=== PATIENT | male | born 1965 | race Caucasian/White ===

== ENCOUNTER → 2020-08-13 09:36 | Outpatient (BNVA) | payer MEDICARE, MEDICAID, SELFPAY | PROVIDERS: PCP Internal Medicine; Referring Provider Internal Medicine; Visit Provider Nurse Practitioner Gerontology | DX: E11.65 Type 2 diabetes mellitus with hyperglycemia (principal); I12.0 Hypertensive chronic kidney disease with stage 5 chronic kidney disease or end stage renal disease; N18.6 End stage renal disease; E11.22 Type 2 diabetes mellitus with diabetic chronic kidney disease; E11.42 Type 2 diabetes mellitus with diabetic polyneuropathy; Z79.4 Long term (current) use of insulin; E78.5 Hyperlipidemia, unspecified; Z99.2 Dependence on renal dialysis | CPT/HCPCS: Q3014 ==

== ENCOUNTER → 2020-09-17 09:03 | Outpatient (BNVA) | payer MEDICARE, MEDICAID, SELFPAY | PROVIDERS: PCP Internal Medicine; Referring Provider Internal Medicine; Visit Provider Nurse Practitioner Gerontology | DX: Z13.89 Encounter for screening for other disorder (principal) | CPT/HCPCS: Q3014 ==

== ENCOUNTER 2020-11-13 07:31 | Outpatient (REF) | payer MEDICARE, MEDICAID, SELFPAY ==
--- NOTE | ~2020-11-13 | US_ITS ---
EXAMINATION: US ABDOMEN COMPLETE CLINICAL INFORMATION: Diabetes mellitus, hypertension, end-stage renal disease. COMPARISON: None TECHNIQUE: Real-time imaging of the abdominal viscera. FINDINGS: PANCREAS: Visualized portions unremarkable. ABDOMINAL AORTA: The proximal, mid, and distal segments are normal in caliber. INFERIOR VENA CAVA: Visualized portions are normal. LIVER: Diffuse increased echotexture without focal abnormality. GALLBLADDER: Incompletely distended. A mural based echogenic focus is seen along the mid deep wall measuring 0.3 cm. Color Doppler showed no abnormal vascular flow. No mural thickening or pericholecystic fluid. COMMON BILE DUCT: Normal in caliber measuring 0.7 cm in diameter. RIGHT KIDNEY: 13.9 cm. An anechoic cyst in the upper pole measures 1.4 cm. An interpolar anechoic cyst measures 1.8 cm. A homogeneous interpolar echogenic focus measures 0.7 cm. Color Doppler showed no abnormal vascular flow. An upper pole echogenic focus measures 0.3 cm. No hydronephrosis. LEFT KIDNEY: Not visualized. No abnormality in the left renal fossa. SPLEEN: Normal. The spleen measures 14.4 cm in maximum dimension. FREE FLUID: None. US/US abdomen complete IMPRESSION: 1. Hepatic steatosis. 2. 0.3 cm gallbladder polyp without other significant abnormality. 3. Small right renal cysts demonstrate benign features. 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 0.3 cm nonobstructing right intrarenal calculus. 4. Nonvisualization of the left kidney which could be atrophic or surgically absent. Correlate with patient history. 5. Borderline splenic enlargement.
== END 2020-11-13 07:32 | disposition home or self-care (01) ==
LOC: HO.US 07:31
PROVIDERS: PCP Internal Medicine; Visit Provider Internal Medicine
DX: I12.0 Hypertensive chronic kidney disease with stage 5 chronic kidney disease or end stage renal disease (principal); E11.22 Type 2 diabetes mellitus with diabetic chronic kidney disease; N18.6 End stage renal disease
CPT/HCPCS: 76700

== ENCOUNTER → 2020-11-24 09:58 | Outpatient (BNVA) | payer MEDICARE, MEDICAID, SELFPAY | PROVIDERS: Visit Provider Dietitian, Registered ==

== ENCOUNTER 2020-12-05 15:10 | Emergency (ER) | payer MEDICARE, MEDICAID, SELFPAY ==
--- NOTE | ~2020-12-05 | XR_ITS ---
EXAMINATION: XR CHEST CLINICAL INFORMATION: Cardiac problems COMPARISON: None TECHNIQUE: 2 views of the chest were obtained. FINDINGS: Borderline enlarged cardiac silhouette. Pulmonary vascularity unremarkable. Lungs clear. Bone and soft tissues unremarkable XR/XR chest 2V IMPRESSION: Borderline enlarged cardiac silhouette
--- NOTE | 2020-12-05 14:00 | CA_ITS ---
Transthoracic Echocardiogram Patient (Last, First, Middle): David Gilbert, Gender: Male Date of : 1965 Age: 55 Procedure Date: 12/05/2020 Procedure Type: Transthoracic Echocardiogram Location: OP Height: 162.56 cm Weight: 86.18 kg BSA: 1.91 m2 Heart Rate: bpm BP: 208 / 94 mmHg Husbandry Person: ALFREDA Referring MD: Arsen Enriquez MD Pitch Worker: Andrei Muñoz MD Symptoms: I10 HTN E11.9 TYPE 2 DM, N18.6 END STAGE RENAL DISEASE Study Quality: Fair ECG Rhythm: Sinus Conclusions: - 1. Khvs-ni-acjuhxhr LV systolic dysfunction with LVEF of 40-45% with impaired relaxation filling pattern 2. Mild fibrocalcific aortic valve changes noted and mild mitral regurgitation 3. Moderate circumferential pericardial effusion with respiratory variation at both mitral and tricuspid inflow and dilated IVC, could suggest tamponade physiology 4. Moderately elevated right ventricular systolic pressure Findings Left Ventricle Normal left ventricular cavity size. There is mildly increased left ventricular wall thickness. The left ventricular systolic function is mild to moderately decreased. The visually estimated ejection fraction is between 40-45%. Spectral Doppler is indicative of an impaired relaxation filling pattern. E/E prime ratio is between 8 and 15 consistent with indeterminate filling pressures. Right Ventricle Normal right ventricular cavity size and systolic function. Atria The left atrium is likely dilated. There is no evidence of interatrial shunt. The right atrium is normal in size. Aortic Valve There is mild calcification of the aortic valve. There is mild thickening of the aortic valve. There is no aortic valve stenosis. There is no aortic valve regurgitation. Mitral Valve There is mild anterior and posterior mitral leaflet thickening. There is mild mitral annular calcification. There is mild mitral valve regurgitation. There is no mitral valve stenosis. Pulmonic Valve The pulmonic valve was not well visualized. Tricuspid Valve Likely normal tricuspid valve structure and function. There is mild to moderate tricuspid valve regurgitation. Moderate pulmonary hypertension is present. Great Vessels All visible segments of the aorta are normal in size. The pulmonary artery was not well visualized. Venous The inferior vena cava is mildly dilated and collapses less than 50% with inspiration. Pericardium/Pleural There is a moderate pericardial effusion. The inferior vena cava is dilated with reduced respiratory variability. There is excessive respiratory variation of the mitral valve and tricuspid valve Doppler velocities. Prior Study Comparison No prior study available for comparison. patient was referred to the emergency room due to findings of pericardial effusion as well as hypertension Measurements M-Mode Liner Measurements Normals - Women/Men AOV Cusps: 2.50 1.5-2.6 cm/m2 2D Linear Measurements IVSd: 1.47 0.6-0.9/0.6-1.0 cm LVIDd: 5.22 3.9-5.3/4.2-5.9 cm LVIDd Index: 2.73 2.4-3.2/2.2-3.1 cm/m2 LVIDs: 3.91 2.0-3.6 cm LVPWd: 1.23 0.7-1.1 cm Ao Root: 3.00 2.1-3.5 cm LA Diam: 4.30 2.7-3.8/3.0-4.0 cm LAIDs Index: 2.25 1.5-2.3 cm/m2 LV Mass: 368.74 67-162/88-224 g LV Mass Index: 193.06 43-95/49-115 g/m2 LVOT Diam: 2.20 3.0+(-)1.3 cm 2D Systolic Function EF 4C: 21.30 >55% EF 2C: 23.00 >55% Mitral Valve MV Pk E: 1.19 MV PK A: 1.11 MV Decel Time: 119.00 E/A: 1.10 E'Lateral: 7.29 E'Medial: 6.64 E/E' Med: 17.90 E/E' Lat: 16.30 PHT: 35.00 MVA PHT: 6.29 Decel Gratiot: 10.02 Aortic Valve AoV Pk Soto: 1.64 AoV Pk Grad: 11.00 LVOT LVOT Pk Soto: 0.85 LVOT Mn Soto: 0.68 LVOT VTI: 0.19 LVOT Pk Grad: 3.00 LVOT Mn Grad: 2.00 LVOT Diam: 2.20 LVOT Area: 3.80 Diastolic Function MV Pk E: 1.19 MV Pk A: 1.11 E/A: 1.10 E'Medial: 6.64 E/E' Med: 17.90 E' Laterial: 7.29 E/E' Lat: 16.30 Tricuspid Valve TR Pk Soto: 3.20 TR Pk Grad: 41.00 RA Press: 8.00 RVSP: 49.00 Great Vessels Aorta Ao Root-2D: 3.00 2.0-3.7 cm Ao Asc: 3.30 2.1-3.4 cm Ao Arch: 2.80 Pulmonary Valve PV Pk Soto: 1.09 Peak PV Grad: 5.00 Updated in Other Vendor System with Status of Final Andrei Muñoz MD electronically signed on 12/05/2020 5:02:54 PM with status of Final
--- NOTE | 2020-12-05 15:19 | ECG_ITS ---
Test Reason : CARDIAC FAILURE Blood Pressure : / mmHG Vent. Rate : 085 BPM Atrial Rate : 085 BPM P-R Int : 140 ms QRS Dur : 088 ms QT Int : 358 ms P-R-T Axes : 046 -03 049 degrees QTc Int : 426 ms Normal sinus rhythm Nonspecific T wave abnormality Abnormal ECG No previous ECGs available Referred By: Ritu Zhu Electronically Signed By:Serafin Manning
[2020-12-05 15:23] VITALS: BP 203/89; PULSE 85; RESP 16; TEMP 36.7; O2SAT 97; BMI 32.5
--- NOTE | 2020-12-05 15:32 | ED.RECABL ---
HPI - Recheck/Abnormal Lab/Rx General Chief Complaint: General Medical Stated Complaint: cardiac failure Time Seen by Provider: 12/05/20 15:17 Source: patient Mode of arrival: ambulatory Limitations: language barrier (Bots[place]an-speaking) History of Present Illness HPI narrative: 55-year-old male who is [place]an-speaking with at Bedside with a past medical history of end-stage renal disease on hemodialysis on Tuesday//Tuesday last had hemodialysis on which was yesterday, type 2 diabetes, hypertension and hyperlipidemia presenting to the ED by Dr. 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 Dang with associated pulmonary hypertension, an EF of 40-45% with a small to moderate pericardial effusion and elevated blood pressure 200/89. Although patient denies any complaints or concerns at this time. He reports he feels like his normal self and he is unsure why exactly he is here. Requesting to go home. - I consulted with Dr. Muñoz and he reported that he sent the patient in due to the hypertension and pericardial effusion on echo and he was unsure when his last hemodialysis was although he does not know much more from the patient due to that is not his patient he does not know who the middle school pe teacher is. The patient reports that his primary care provider Dr. Dang ordered the outpatient echocardiogram. Related Data Home Medications Medication Instructions Recorded Confirmed atorvastatin 10 mg tablet 10 mg PO DAILY 08/13/20 12/05/20 blood sugar diagnostic #10 ea 08/13/20 09/17/20 furosemide 40 mg tablet 40 mg PO DAILY 08/13/20 12/05/20 isosorbide mononitrate 30 mg 30 mg PO DAILY 08/13/20 12/05/20 tablet,extended release 24 hr lancets 28 gauge #100 ea 08/13/20 09/17/20 metoprolol succinate 100 mg 100 mg PO DAILY 08/13/20 12/05/20 tablet,extended release 24 hr pantoprazole 40 mg tablet,delayed 40 mg PO DAILY 08/13/20 12/05/20 release pentoxifylline 400 mg 400 mg PO BID 08/13/20 12/05/20 tablet,extended release risperidone 1 mg tablet 1 mg PO BEDTIME 08/13/20 12/05/20 temazepam 15 mg capsule 15 mg PO DAILY 08/13/20 12/05/20 fluoxetine 20 mg capsule 20 mg PO DAILY cap 09/17/20 12/05/20 hydralazine 10 mg tablet 10 mg PO TID 09/17/20 12/05/20 insulin degludec 25 unit SUBCUT DAILY 12/05/20 12/05/20 Previous Rx's Medication Instructions Recorded blood sugar diagnostic #150 ea 09/17/20 insulin aspart U-100 100 unit/mL 20 - 24 unit SUBCUT TID 90 Days 09/29/20 (3 mL) subcutaneous pen #75 ml Allergies Allergy/AdvReac Type Severity Reaction Status Date / Time No Known Allergies Allergy Unverified 09/17/20 15:12 [No Known Allergies*] Review of Systems Review of Systems: Constitutional : No Weight loss, No Fever, No Chills, No Night Sweats, No Fatigue, No Malaise, no recent travel, no sick contacts ENT/Mouth : No Hearing loss, No Ear Pain, No Nasal Congestion, No Sinus Pain, No Hoarseness, No sore throat, No Rhinorrhea, No Swallowing Difficulty Eyes: No Eye Pain, No Swelling, No Redness, No Foreign Body, No Discharge, No Vision Changes Cardiovascular : No SOB, no Dyspnea on Exertion, No Orthopnea, No Edema, No extremity swelling, No Palpitations Respiratory : No Cough, No Sputum, No Wheezing, No Dyspnea Gastrointestinal : No Nausea, No Vomiting, No Diarrhea, No abdominal Pain, No Hematochezia, No Melena Genitourinary : No irregular bleeding, No Dysuria, No Urinary Frequency, No Hematuria, No Urinary Incontinence, No Urgency, No Flank Pain, No Urinary Flow Changes, No Hesitancy Musculoskeletal : No joint pain, No Myalgias, No Joint Swelling Skin : No Skin Lesions, No rash Neuro : No Weakness, No Numbness, No Paresthesias, No Loss of Consciousness, No Dizziness, No Headache Psych : No Anxiety/Panic, No Depression, No SI/HI/AH/VH Heme/Lymph: No Bruising, No Bleeding,No Lymphadenopathy Endocrine : No Polyuria, No Polydipsia, No Temperature Intolerance Yes all other systems are reviewed and are negative FOR[facility]LY [facility] Past Medical History Attestation statement: The following information was validated with the patient. Medical History Dependence on renal dialysis End stage renal disease Essential hypertension Hyperlipidemia LDL goal <70 Hypertriglyceridemia Type 2 diabetes mellitus with chronic kidney disease Type 2 diabetes mellitus with diabetic polyneuropathy Type 2 diabetes mellitus with hyperglycemia, with long-term current use of insulin Surgical History History of right cataract surgery Hx of eye surgery Family History Family History Father Diabetes Mother Diabetes Social History Social History Household Members: Family Alcohol intake: never Smoking Status: Never smoker Use of substances other than those prescribed or required for medical reasons: No Physical Exam Vital Signs: Vital Signs: Last Vital Signs Temp 98.1 F 12/05/20 15:23 Pulse 85 12/05/20 15:23 Resp 16 12/05/20 15:23 BP 203/89 H 12/05/20 15:23 Pulse Ox 97 12/05/20 15:23 Body Mass Index 32.5 vital signs have been reviewed as normal and appeared to be correct. Blood pressure hypertensive at 203/89. Heart rate normal. Respiration rate normal. Temperature normal. Oxygen saturation normal. Appearance: Alert. Oriented X3. No acute distress. Head: Normal external exam. Normocephalic. Atraumatic. Eyes: PERRLA. EOMI. Conjunctiva and sclera normal. Eyelids normal. ENT:Pharynx normal. Uvula midline. Moist mucous membranes. No trismus noted. No drooling noted. No muffled voice noted. Neck: Normal inspection. Neck supple. FROM. No adenopathy. Thyroid Normal. No meningeal signs. No neck mass noted. CVS: Normal heart rate and rhythm. Heart sound normal. No murmurs noted. Pulses normal throughout. Respiratory: No respiratory distress. Painless inspiration. Breath sounds normal. No wheezes/rales/rhonchi noted. Chest nontender. No accessory muscle usage noted or decreased air movement noted. Abdomen: Soft and nontender. Bowel sounds normal in all 4 quadrants. No distention noted. No organomegaly noted. No visible injury noted. Back: No CVA tenderness. Full range of motion noted. Skin: Skin warm and dry. Normal skin color. Normal skin turgor. No rashes/lesions/lacerations noted. Extremities: No lower extremity edema. No calf tenderness noted. Extremities exhibit normal range of motion. Extremities nontender. Neuro: Oriented X 3. No motor deficit. No sensory deficit. Reflexes normal. Course Course Course Narrative: 15:20pm - 55-year-old male who is [place]an-speaking with at Bedside with a past medical history of end-stage renal disease on hemodialysis on Tuesday//Tuesday last had HD on , type 2 DM, HTN and HLD presenting to the ED by Dr. 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 Dang with associated pulmonary hypertension, an EF of 40-45% with a small to moderate pericardial effusion and elevated blood pressure 200/89. Although patient denies any complaints or concerns at this time. He reports he feels like his normal self and he is unsure why exactly he is here. - on exam patient is alert and oriented x3. Not in any acute distress. Hypertensive at 203/89 although denies any cardiac-related complaints reports he feels like his normal self. All other vitals are within normal limits. CV RRR, lungs clear to auscultation, abdomen is soft and nontender, no lower extremity edema noted. Patient is neuro intact no focal neuro deficits noted. - Plan: Labs, CXR, EKG then re-evaluate. Reevaluation(s) Reevaluation #1: - red blood cell 2.6 - H&H 8.4/26.1 - Sodium 132 - Potassium 6.4. - BUN 49. - Creatinine 8.36. - random glucose 635 - chest x-ray Borderline enlarged cardiac silhouette otherwise no other acute processes noted - EKG was normal sinus rhythm with ventricular rate of 85 with nonspecific T-wave abnormalities no acute ischemic changes no prior EKGs to compare to in this symptom at this time - at this time will give 10 units of IV insulin consult with Nephrology and with the hospitalist for possible admission for dialysis patient understands agrees the plan. Time: 17:19 Reevaluation #2: - I consulted with the hospitalist who recommended calling thoracic surgery to make sure that it is safe that the patient can be admitted here versus transferring to [facility] - I consulted with Nephrology Dr. Rolwey who recommended giving the patient 10 units of IV insulin, an hour long breathing treatment and 10 grams of Zirconium - then he reported to repeat the patient's chemistry and 2 hours and the patient's potassium is still elevated to give another 10 g of Zirconium so that they do not have to perform dialysis today - I spoke to Leonor Weinberg the thoracic surgical PA and she reported that she believes that the patient can be admitted here although she will speak to Dr. Roque to get a definite answer - Sign out to JANIYA Simpson pending repeat chemistry in 2 hours and thoracic surgical consult Time: 17:41 MDM - Recheck/Abnormal Lab/Rx Medical Records Attestation: I reviewed the patient's medical records. Lab Data Attestation: I reviewed the patient's lab results. Result diagrams: 12/05/20 17:02 12/05/20 16:03 Labs: Lab Results 12/05/20 12/05/20 12/05/20 Range/Units 16:03 16:03 17:02 WBC 7.3 (4.8-10.8) X10*3/uL RBC 2.61 L (4.60-5.80) X10*6/uL Hgb 8.4 L (14.0-18.0) g/dl Hct 26.1 L (42-52) % MCV 100.0 H (80-98) fL MCH 32.2 (27.0-33.0) pg MCHC 32.2 (31.0-36.0) g/dl RDW 12.9 (11.0-16.0) % Plt Count 307 (160-400) X10*3/uL MPV 9.5 (9.4-12.4) fL Immature Gran % (Auto) 1.0 H (0.0-0.4) % Neut % (Auto) 74.2 H (45-73) % Lymph % (Auto) 10.8 L (20-40) % Ector % (Auto) 9.8 (2-11) % Eos % (Auto) 3.5 (0-4) % Baso % (Auto) 0.7 (0-2) % Lymph # (Auto) 0.8 L (1.2-4.9) X10*3/uL Ector # (Auto) 0.7 (0.1-1.2) X10*3/uL Eos # (Auto) 0.3 (0.0-0.4) X10*3/uL Baso # (Auto) 0.1 (0.0-0.2) X10*3/uL Abs Immat Gran (auto) 0.07 H (0.00-0.03) X10*3/uL Absolute Neuts (auto) 5.5 (2.0-8.3) X10*3/uL Absolute Nucleated RBC 0.000 (0.0-0.012) X10*3/uL Nucleated RBC % (auto) 0.0 (0.0-0.2) /100WBC PT 13.3 H (10.8-13.0) SEC INR 1.1 (0.9-1.1) APTT 24.2 (24.1-38.0) SEC Sodium 132 L (135-145) mmol/L Potassium 6.4 H* (3.3-5.1) mmol/L Chloride 93 L (96-108) mmol/L Carbon Dioxide 24 (22-29) mmol/L Anion Gap 21 H (12-20) BUN 49 H (9-16) mg/dL Creatinine 8.36 H* (0.5-1.4) mg/dL Estim Creat Clear Calc 9.6 Estimated GFR 7 Random Glucose 635 H* (60-115) mg/dL Calcium 8.9 (8.4-10.2) mg/dL Magnesium 1.8 (1.6-2.6) mg/dL Total Bilirubin 0.5 (0.0-1.0) mg/dL Direct Bilirubin 0.2 (0.0-0.5) mg/dL AST 12 (5-37) U/L ALT 21 (0-40) U/L Alkaline Phosphatase 92 (39-117) U/L Total Protein 6.2 L (6.5-8.0) g/dL Albumin 3.4 L (3.5-5.0) g/dL Imaging Data Chest x-ray: Attestation: I personally reviewed and interpreted this imaging study as follows: Radiologist's impression: FINDINGS: Borderline enlarged cardiac silhouette. Pulmonary vascularity unremarkable. Lungs clear. Bone and soft tissues unremarkable XR/XR chest 2V IMPRESSION: Borderline enlarged cardiac silhouette Echocardiogram: Attestation: I personally reviewed and interpreted this imaging study as follows: Radiologist's impression: Ordering Physician: ARSEN DANG MD Date of Service: 12/05/20 Procedure(s): CA echo transthoracic complete Accession Number(s): cc: ARSEN DANG MD~ Transthoracic Echocardiogram Patient (Last, First, Middle): David Gilbert, Gender: Male Date of : 1965 Age: 55 Procedure Date: 12/05/2020 Procedure Type: Transthoracic Echocardiogram Location: OP Height: 162.56 cm Weight: 86.18 kg BSA: 1.91 m2 Heart Rate: bpm BP: 208 / 94 mmHg [employer] Specialist: TRN Referring MD: Arsen Dang MD Tube Puller: Andrei Muñoz MD Symptoms: I10 HTN E11.9 TYPE 2 DM, N18.6 END STAGE RENAL DISEASE Study Quality: Fair ECG Rhythm: Sinus Conclusions: - 1. Btyq-so-abrubkpg LV systolic dysfunction with LVEF of 40-45% with impaired relaxation filling pattern 2. Mild fibrocalcific aortic valve changes noted and mild mitral regurgitation 3. Moderate circumferential pericardial effusion with respiratory variation at both mitral and tricuspid inflow and dilated IVC, could suggest tamponade physiology 4. Moderately elevated right ventricular systolic pressure Findings Left Ventricle Normal left ventricular cavity size. There is mildly increased left ventricular wall thickness. The left ventricular systolic function is mild to moderately decreased. The visually estimated ejection fraction is between 40-45%. Spectral Doppler is indicative of an impaired relaxation filling pattern. E/E prime ratio is between 8 and 15 consistent with indeterminate filling pressures. Right Ventricle Normal right ventricular cavity size and systolic function. Atria The left atrium is likely dilated. There is no evidence of interatrial shunt. The right atrium is normal in size. Aortic Valve There is mild calcification of the aortic valve. There is mild thickening of the aortic valve. There is no aortic valve stenosis. There is no aortic valve regurgitation. Mitral Valve There is mild anterior and posterior mitral leaflet thickening. There is mild mitral annular calcification. There is mild mitral valve regurgitation. There is no mitral valve stenosis. Pulmonic Valve The pulmonic valve was not well visualized. Tricuspid Valve Likely normal tricuspid valve structure and function. There is mild to moderate tricuspid valve regurgitation. Moderate pulmonary hypertension is present. Great Vessels All visible segments of the aorta are normal in size. The pulmonary artery was not well visualized. Venous The inferior vena cava is mildly dilated and collapses less than 50% with inspiration. Pericardium/Pleural There is a moderate pericardial effusion. The inferior vena cava is dilated with reduced respiratory variability. There is excessive respiratory variation of the mitral valve and tricuspid valve Doppler velocities. Prior Study Comparison No prior study available for comparison. patient was referred to the emergency room due to findings of pericardial effusion as well as hypertension ECG Data Attestation: I personally reviewed and interpreted this ECG as follows: ECG interpretation date: 12/05/20 ECG interpretation time: 16:07 Interpretation: Normal sinus rhythm with ventricular rate of 85 with nonspecific T-wave abnormalities no acute ischemic changes noted. No prior EKG in system to compare to at this time. Critical Care Time Critical Care Time Critical Care Time: Yes Total Critical Care Time: 60 Attestation: I personally attest to this time spent taking care of the patient Discharge Plan Discharge Clinical Impression: Acute hyperkalemia, Hyperglycemia, Renal failure, acute on chronic, Hypertensive chronic kidney disease, Anemia, Acute pericardial effusion, Ejection fraction < 50%, Pulmonary hypertension Prescriptions: No Action insulin aspart U-100 100 unit/mL (3 mL) insulin pen 20 - 24 unit subcut TID 90 Days Qty: 75 RF: 0 insulin degludec 200 unit/mL (3 mL) insulin pen 25 unit subcut DAILY RF: 0 hydralazine 10 mg tablet 10 mg PO TID RF: 0 (DME) FreeStyle Lite Strips Strip See Rx Instructions .ROUTE .MEDSUPPLY Qty: 150 RF: 11 metoprolol succinate 100 mg tablet extended release 24 hr 100 mg PO DAILY RF: 0 furosemide 40 mg tablet 40 mg PO DAILY RF: 0 risperidone 1 mg tablet 1 mg PO BEDTIME RF: 0 pentoxifylline 400 mg tablet extended release 400 mg PO BID RF: 0 atorvastatin 10 mg tablet 10 mg PO DAILY RF: 0 temazepam 15 mg capsule 15 mg PO DAILY RF: 0 pantoprazole 40 mg tablet,delayed release (DR/EC) 40 mg PO DAILY RF: 0 isosorbide mononitrate 30 mg tablet extended release 24 hr 30 mg PO DAILY RF: 0 (DME) FreeStyle Lite Strips Strip See Rx Instructions ea Not Applicable BID Qty: 10 RF: 0 (DME) lancets 28 gauge misc See Rx Instructions ea Not Applicable QID Qty: 100 RF: 0 fluoxetine 20 mg capsule 20 mg PO DAILY RF: 0
[2020-12-05 16:14] LABS: INTERNATIONAL NORM RATIO 1.1 (0.9-1.1); Prothrombin Time 13.3 SEC (10.8-13.0)
[2020-12-05 16:17] LABS: Partial Thromboplastin Time 24.2 SEC (24.1-38.0)
[2020-12-05 17:04] LABS: Alanine Aminotransferase 21 U/L (0-40); Albumin Level 3.4 g/dL (3.5-5.0); Alkaline Phosphatase 92 U/L (39-117); Anion Gap 21 (12-20); Aspartate Amino Transferase 12 U/L (5-37); Bilirubin Direct 0.2 mg/dL (0.0-0.5); Bilirubin Total 0.5 mg/dL (0.0-1.0); Blood Urea Nitrogen 49 mg/dL (9-16); Calcium 8.9 mg/dL (8.4-10.2); Carbon Dioxide 24 mmol/L (22-29); Chloride 93 mmol/L (96-108); Creatinine Clr Calc Pharmacy 9.6; Estimated Glomerular Filt Rate 7; Glucose Random 635 mg/dL (60-115); Magnesium 1.8 mg/dL (1.6-2.6); Potassium 6.4 mmol/L (3.3-5.1); Sodium 132 mmol/L (135-145); Total Protein 6.2 g/dL (6.5-8.0)
[2020-12-05 17:07] LABS: MANUAL DIFF FLAG NO
[2020-12-05 17:08] LABS: Basophils Absolute Auto 0.1 X10*3/uL (0.0-0.2); Basophils Percent Auto 0.7 % (0-2); Eosinophils Absolute Auto 0.3 X10*3/uL (0.0-0.4); Eosinophils Percent Auto 3.5 % (0-4); Hematocrit 26.1 % (42-52); Hemoglobin 8.4 g/dl (14.0-18.0); Imm Gran Abs Auto 0.07 X10*3/uL (0.00-0.03); Lymphocytes Absolute Auto 0.8 X10*3/uL (1.2-4.9); Lymphocytes Percent Auto 10.8 % (20-40); Mean Corpuscular HGB Conc 32.2 g/dl (31.0-36.0); Mean Corpuscular Hemoglobin 32.2 pg (27.0-33.0); Mean Platelet Volume 9.5 fL (9.4-12.4); Monocytes Absolute Auto 0.7 X10*3/uL (0.1-1.2); Monocytes Percent Auto 9.8 % (2-11); Neutrophils Absolute Auto 5.5 X10*3/uL (2.0-8.3); Neutrophils Percent Auto 74.2 % (45-73); Platelet Count 307 X10*3/uL (160-400); Red Blood Count 2.61 X10*6/uL (4.60-5.80); Red Cell Distribution Width 12.9 % (11.0-16.0); White Blood Count 7.3 X10*3/uL (4.8-10.8)
[2020-12-05 17:43] LABS: Troponin-I High Sensitivity 11.9 ng/L (<3.5-35.0)
[2020-12-05 17:52] LABS: Acetone, serum QL Negative (Negative)
[2020-12-05 18:18] VITALS: BP 210/96; PULSE 86; RESP 18; TEMP 36.6; O2SAT 94
[2020-12-05] MEDS: Insulin Regular, Human 100 UNIT/ML 3 ML VIAL 10 UNIT IVPUSH (18:33)
[2020-12-05 18:38] LABS: COVID-19 Test Negative (Negative); IDNOW Serial# 9DD0AD1C
[2020-12-05] MEDS: Sodium Zirconium Cyclosilicate 10 GM POWD.PACK PO (18:42)
[2020-12-05 19:09] VITALS: BP 210/96; PULSE 85
[2020-12-05] MEDS: hydrALAZINE HCl 25 MG TABLET PO (19:09)
[2020-12-05 20:26] VITALS: BP 194/95; PULSE 86; RESP 23; TEMP 37.1; O2SAT 91
[2020-12-05 20:34] LABS: Glucose, Whole Blood 277 mg/dL (60-115)
== END 2020-12-05 20:35 | disposition short-term general hospital (02) ==
LOC: HO.ED 15:10
PROVIDERS: Nurse Practitioner Family; Physician Assistant Medical; Emergency Provider Emergency Medicine Emergency Medical Services; Visit Provider Internal Medicine
DX: I27.20 Pulmonary hypertension, unspecified (principal); I31.3 Pericardial effusion (noninflammatory); E87.5 Hyperkalemia; E11.65 Type 2 diabetes mellitus with hyperglycemia; E11.22 Type 2 diabetes mellitus with diabetic chronic kidney disease; I12.0 Hypertensive chronic kidney disease with stage 5 chronic kidney disease or end stage renal disease; N18.6 End stage renal disease; N17.9 Acute kidney failure, unspecified; D63.1 Anemia in chronic kidney disease; Z99.2 Dependence on renal dialysis; Z79.4 Long term (current) use of insulin; Z20.822 Contact with and (suspected) exposure to COVID-19
CPT/HCPCS: 36415; 71046; 80048; 80076; 82009; 82947; 83735; 84484; 85025; 85610; 85730; 87635; 93005; 93306; 96374; 99285; 99291

== ENCOUNTER → 2020-12-15 12:58 | Outpatient (BNVA) | payer MEDICARE, MEDICAID, SELFPAY | PROVIDERS: Visit Provider Nurse Practitioner Gerontology | DX: E11.42 Type 2 diabetes mellitus with diabetic polyneuropathy (principal); E11.65 Type 2 diabetes mellitus with hyperglycemia; E11.22 Type 2 diabetes mellitus with diabetic chronic kidney disease; I12.9 Hypertensive chronic kidney disease with stage 1 through stage 4 chronic kidney disease, or unspecified chronic kidney disease; N18.6 End stage renal disease; Z79.4 Long term (current) use of insulin; Z99.2 Dependence on renal dialysis; E78.5 Hyperlipidemia, unspecified; E78.1 Pure hyperglyceridemia | CPT/HCPCS: 82947; Q3014 ==

== ENCOUNTER → 2021-02-20 10:14 | Outpatient (BNVA) | payer MEDICARE, MEDICAID, SELFPAY | PROVIDERS: Visit Provider Dietitian, Registered | DX: E11.22 Type 2 diabetes mellitus with diabetic chronic kidney disease (principal); N18.6 End stage renal disease; Z79.4 Long term (current) use of insulin; Z99.2 Dependence on renal dialysis; Z71.3 Dietary counseling and surveillance | CPT/HCPCS: 97803 ==

== ENCOUNTER → 2021-03-25 12:27 | Outpatient (BNVA) | payer MEDICARE, MEDICAID, SELFPAY | PROVIDERS: Visit Provider Nurse Practitioner Gerontology | DX: E11.65 Type 2 diabetes mellitus with hyperglycemia (principal); E11.42 Type 2 diabetes mellitus with diabetic polyneuropathy; E11.22 Type 2 diabetes mellitus with diabetic chronic kidney disease; N18.6 End stage renal disease; E78.5 Hyperlipidemia, unspecified; Z79.4 Long term (current) use of insulin; Z99.2 Dependence on renal dialysis | CPT/HCPCS: 82947; 99212 ==

== ENCOUNTER 2021-03-25 13:15 | Emergency (ER) | payer MEDICARE, MEDICAID, SELFPAY ==
[2021-03-25 14:35] VITALS: BP 137/68; PULSE 72; RESP 18; TEMP 35.8; O2SAT 93; BMI 33.3
== END 2021-03-25 18:09 | disposition left against medical advice (07) ==
PROVIDERS: Emergency Provider Emergency Medicine
DX: R73.9 Hyperglycemia, unspecified (principal)
CPT/HCPCS: 99281; 99282

== ENCOUNTER → 2021-04-24 10:04 | Outpatient (BNVA) | payer MEDICARE, MEDICAID, SELFPAY | PROVIDERS: Visit Provider Dietitian, Registered | DX: E11.22 Type 2 diabetes mellitus with diabetic chronic kidney disease (principal); N18.6 End stage renal disease; Z79.4 Long term (current) use of insulin; Z99.2 Dependence on renal dialysis; Z71.3 Dietary counseling and surveillance | CPT/HCPCS: 97803 ==

== ENCOUNTER → 2021-07-20 11:06 | Outpatient (BNVA) | payer MEDICARE, MEDICAID, SELFPAY | PROVIDERS: Visit Provider Nurse Practitioner Gerontology | DX: E11.65 Type 2 diabetes mellitus with hyperglycemia (principal); E11.42 Type 2 diabetes mellitus with diabetic polyneuropathy; E11.22 Type 2 diabetes mellitus with diabetic chronic kidney disease; I12.0 Hypertensive chronic kidney disease with stage 5 chronic kidney disease or end stage renal disease; N18.6 End stage renal disease; E78.5 Hyperlipidemia, unspecified; E78.1 Pure hyperglyceridemia; Z87.891 Personal history of nicotine dependence; Z79.4 Long term (current) use of insulin; Z99.2 Dependence on renal dialysis; Z79.899 Other long term (current) drug therapy | CPT/HCPCS: 82947; 83036; 99212 ==

== ENCOUNTER → 2021-07-24 10:06 | Outpatient (BNVA) | payer MEDICARE, MEDICAID, SELFPAY | PROVIDERS: Visit Provider Dietitian, Registered | DX: E11.22 Type 2 diabetes mellitus with diabetic chronic kidney disease (principal); N18.6 End stage renal disease; Z99.2 Dependence on renal dialysis; Z79.4 Long term (current) use of insulin | CPT/HCPCS: 97803 ==

== ENCOUNTER → 2021-09-09 09:59 | Outpatient (BNVA) | payer MEDICARE, MEDICAID, SELFPAY | PROVIDERS: Visit Provider Nurse Practitioner Gerontology | DX: E11.42 Type 2 diabetes mellitus with diabetic polyneuropathy (principal); E11.65 Type 2 diabetes mellitus with hyperglycemia; E11.22 Type 2 diabetes mellitus with diabetic chronic kidney disease; I12.9 Hypertensive chronic kidney disease with stage 1 through stage 4 chronic kidney disease, or unspecified chronic kidney disease; N18.6 End stage renal disease; I16.0 Hypertensive urgency; E78.5 Hyperlipidemia, unspecified; E78.1 Pure hyperglyceridemia; E87.5 Hyperkalemia; Z99.2 Dependence on renal dialysis; Z79.4 Long term (current) use of insulin | CPT/HCPCS: 82947; 99212 ==

== ENCOUNTER → 2021-11-09 12:32 | Outpatient (BNVA) | payer MEDICARE, MEDICAID, SELFPAY | PROVIDERS: Visit Provider Dietitian, Registered | DX: E11.22 Type 2 diabetes mellitus with diabetic chronic kidney disease (principal); N18.6 End stage renal disease; Z79.4 Long term (current) use of insulin; Z99.2 Dependence on renal dialysis | CPT/HCPCS: 97803 ==

== ENCOUNTER → 2021-12-18 14:08 | Outpatient (BNVA) | payer MEDICARE, MEDICAID, SELFPAY | PROVIDERS: PCP Internal Medicine; Visit Provider Nurse Practitioner Gerontology | DX: E11.65 Type 2 diabetes mellitus with hyperglycemia (principal); E11.42 Type 2 diabetes mellitus with diabetic polyneuropathy; E11.22 Type 2 diabetes mellitus with diabetic chronic kidney disease; I12.9 Hypertensive chronic kidney disease with stage 1 through stage 4 chronic kidney disease, or unspecified chronic kidney disease; N18.6 End stage renal disease; E78.5 Hyperlipidemia, unspecified; E78.1 Pure hyperglyceridemia; Z99.2 Dependence on renal dialysis; Z79.4 Long term (current) use of insulin | CPT/HCPCS: 82947; 83036; 99212 ==

== ENCOUNTER → 2022-01-27 13:36 | Outpatient (BNVA) | payer MEDICARE, MEDICAID, SELFPAY | PROVIDERS: PCP Internal Medicine; Visit Provider Registered Nurse Diabetes Educator | DX: E11.22 Type 2 diabetes mellitus with diabetic chronic kidney disease (principal); N18.6 End stage renal disease; Z79.4 Long term (current) use of insulin; Z99.2 Dependence on renal dialysis | CPT/HCPCS: 99211 ==

== ENCOUNTER → 2022-02-05 11:48 | Outpatient (BNVA) | payer MEDICARE, MEDICAID, SELFPAY | PROVIDERS: PCP Internal Medicine; Visit Provider Dietitian, Registered | DX: E11.22 Type 2 diabetes mellitus with diabetic chronic kidney disease (principal); N18.6 End stage renal disease; Z99.2 Dependence on renal dialysis; Z79.4 Long term (current) use of insulin | CPT/HCPCS: 97803 ==